=== PATIENT | male | born 1965 | race African-American/Black ===

== ENCOUNTER 2017-06-16 10:43 | Emergency (ER) | payer OTHER ==
[2017-06-16 11:16] VITALS: TEMP 98; BMI 22.8
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
[2017-06-16] MEDS ORDERED: KETOROLAC TROMETHAMINE 60 MG/2 ML VIAL IM ONE (13:18)
[2017-06-16] MEDS ORDERED: KETOROLAC TROMETHAMINE 60 MG/2 ML VIAL ONE (13:22)
[2017-06-16 13:30] VITALS: BP 141/85; PULSE 66
== END 2017-06-16 13:30 | disposition home or self-care (01) ==
LOC: JERFT 10:43 → JER 10:43 → JERFT 13:30
PROC: 3E0233Z Introduction of Anti-inflammatory into Muscle, Percutaneous Approach (ICD-10-PCS; principal; 2017-06-16)
DX: S13.4XXA Sprain of ligaments of cervical spine, initial encounter (principal); S06.9X1A Unspecified intracranial injury with loss of consciousness of 30 minutes or less, initial encounter; V43.52XA Car driver injured in collision with other type car in traffic accident, initial encounter; Y92.488 Other paved roadways as the place of occurrence of the external cause; Y93.89 Activity, other specified; Y99.9 Unspecified external cause status; I10 Essential (primary) hypertension; E11.9 Type 2 diabetes mellitus without complications; F17.210 Nicotine dependence, cigarettes, uncomplicated
CPT/HCPCS: 70450-TC; 72125-TC; 99281-25